=== PATIENT | male | born 1950 | race Caucasian/White ===

== ENCOUNTER 2020-07-28 09:48 | Outpatient (CLI) | payer MEDICARE, SELFPAY ==
--- NOTE | ~2020-07-28 | US_ITS ---
EXAMINATION: US aorta [facility] scr[facility] DATE: 07/28/2020 10:27 INDICATION: Abdominal aortic aneurysm screening. TECHNIQUE: Grayscale, color Doppler, and pulsed Doppler images of the aorta and common iliac arteries were obtained. COMPARISON: None. FINDINGS: The aorta is normal in caliber. The right common iliac artery is normal in caliber. The left common i liac artery is normal in caliber. IMPRESSION: 1. No abdominal aortic aneurysm. Reviewed, dictated and finalized at location A. [employer]
--- NOTE | ~2020-07-28 | XR_ITS ---
XR hand RT 2V DATE: 07/28/2020 10:16 INDICATION: Right first digit metacarpal pain for 3 months TECHNIQUE: 3 views COMPARISON: None FINDINGS: There is minimal osteophyte is at the first carpometacarpal joint. There is osteoarthritis at the interphalangeal joint of the first digit and at the third and especially second metacarpal pha langeal joints. No fracture, dislocation, periosteal reaction or bone destruction. IMPRESSION: Polyarticular osteoarthritis Reviewed, dictated and finalized at location B. 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
[2020-07-28 10:05] LABS: Hemoglobin 13.7 g/dL (12.4-15.3); Mean Corpuscular HGB Conc 34.3 g/dL (32.0-36.0); Mean Corpuscular Hemoglobin 31.4 pg (27.0-31.0); Mean Corpuscular Volume 91.5 fL (78.0-102.0); Mean Platelet Volume 8.7 fl (8.7-11.0); Platelet Count Result 180 K/mm3 (150-420); Red Blood Count 4.37 M/mm3 (4.70-6.10); Red Cell Distribution Width 12.9 % (11.6-14.4); White Blood Count 7.2 K/mm3 (4.8-10.8)
[2020-07-28 10:46] LABS: Alanine Aminotransferase 32 U/L (16-63); Albumin Level 4.1 g/dL (3.4-5.0); Alkaline Phosphatase 21 U/L (46-116); Anion Gap 7 mmol/L (8-16); Aspartate Amino Transferase 18 U/L (15-37); Bilirubin,Total 0.5 mg/dL (0.00-1.00); Blood Urea Nitrogen 10 mg/dL (7-18); Calcium 8.6 mg/dL (8.5-10.1); Carbon Dioxide 29 mmol/L (21-32); Chloride 104 mmol/L (98-108); Cholesterol 180 mg/dL (0-200); Estimated Glomerular Filt Rate > 60; Glucose 114 mg/dL (70-99); HDL Direct 35 mg/dL (40-60); LDL Cholesterol Calculated 106 mg/dL (<130); Osmolality Calculated 290 mOsm/kg (285-295); Potassium 4.1 mmol/L (3.5-5.1); Prostate Specific Antigen 0.7 ng/mL (< OR = 4.0); Sodium 140 mmol/L (136-145); Total Protein 6.8 g/dL (6.4-8.2); Triglycerides 193 mg/dL (0-150)
[2020-07-29 12:05] LABS: Hemoglobin A1C 5.2 % (<5.7)
== END 2020-07-28 09:49 | disposition home or self-care (01) ==
LOC: CHSLAB 09:52
PROVIDERS: Nurse Practitioner Family; PCP Family Medicine; Visit Provider Family Medicine
DX: M79.644 Pain in right finger(s) (principal); Z13.6 Encounter for screening for cardiovascular disorders; I10 Essential (primary) hypertension; Z12.5 Encounter for screening for malignant neoplasm of prostate
CPT/HCPCS: 36415; 73120; 76706; 80053; 80061; 83036; 84153; 85027; G0103

== ENCOUNTER 2021-04-10 16:19 | Outpatient (CLI) | payer MEDICARE, SELFPAY ==
--- NOTE | ~2021-04-10 | XR_ITS ---
XR chest 2V DATE: 04/10/2021 17:07 INDICATION: Cough for several months. History of COPD. TECHNIQUE: PA and lateral views COMPARISON: None FINDINGS: Normal heart size. No hilar or mediastinal enlargement. Aortic arch and descending thoracic aortic calcification. No hilar or mediastinal enlargement. The lungs are clear of infiltrate or consolidation. No pleural effusion or pulmonary vascular congest ion or pneumothorax. IMPRESSION: No active cardiopulmonary disease Reviewed, dictated and finalized at location B.
== END 2021-04-10 16:20 | disposition home or self-care (01) ==
LOC: CHSIMG 16:20
PROVIDERS: PCP Family Medicine; Visit Provider Family Medicine
DX: R05 Cough (principal)
CPT/HCPCS: 71046

== ENCOUNTER 2021-08-18 13:46 | Outpatient (CLI) | payer MEDICARE, SELFPAY ==
[2021-08-18 13:56] LABS: Hematocrit 42.5 % (37.0-46.0); Hemoglobin 14.7 g/dL (12.4-15.3); Mean Corpuscular HGB Conc 34.6 g/dL (32.0-36.0); Mean Corpuscular Hemoglobin 31.7 pg (27.0-31.0); Mean Corpuscular Volume 91.8 fL (78.0-102.0); Mean Platelet Volume 8.5 fl (8.7-11.0); Platelet Count Result 179 K/mm3 (150-420); Red Blood Count 4.63 M/mm3 (4.70-6.10); Red Cell Distribution Width 12.8 % (11.6-14.4); White Blood Count 6.6 K/mm3 (4.8-10.8)
== END 2021-08-18 13:47 | disposition home or self-care (01) ==
LOC: CHSLAB 13:48
PROVIDERS: PCP Family Medicine; Visit Provider Nurse Practitioner Family
DX: I10 Essential (primary) hypertension (principal)
CPT/HCPCS: 36415; 85027

== ENCOUNTER 2022-04-29 11:00 | Outpatient (RCR) | payer MEDICARE, SELFPAY | END 2022-05-11 14:05 | disposition home or self-care (01) | PROVIDERS: PCP Family Medicine | DX: J44.9 Chronic obstructive pulmonary disease, unspecified (principal) | CPT/HCPCS: 94625 ==

== ENCOUNTER 2022-09-20 14:23 | Outpatient (CLI) | payer MEDICARE, SELFPAY ==
[2022-09-20 14:40] LABS: Hematocrit 42.3 % (37.0-46.0); Hemoglobin 14.2 g/dL (12.4-15.3); Mean Corpuscular HGB Conc 33.6 g/dL (32.0-36.0); Mean Corpuscular Hemoglobin 31.1 pg (27.0-31.0); Mean Corpuscular Volume 92.6 fL (78.0-102.0); Mean Platelet Volume 8.6 fl (8.7-11.0); Platelet Count Result 207 K/mm3 (150-420); Red Blood Count 4.57 M/mm3 (4.70-6.10); Red Cell Distribution Width 12.9 % (11.6-14.4); White Blood Count 8.3 K/mm3 (4.8-10.8)
[2022-09-20 15:21] LABS: Alanine Aminotransferase 26 U/L (16-63); Albumin Level 4.4 g/dL (3.4-5.0); Alkaline Phosphatase 31 U/L (46-116); Anion Gap 8 mmol/L (8-16); Aspartate Amino Transferase 19 U/L (15-37); Bilirubin,Total 0.5 mg/dL (0.00-1.00); Blood Urea Nitrogen 14 mg/dL (7-18); Calcium 9.5 mg/dL (8.5-10.1); Carbon Dioxide 30 mmol/L (21-32); Chloride 97 mmol/L (98-108); Cholesterol 198 mg/dL (0-200); Estimated Glomerular Filt Rate > 60; Glucose 134 mg/dL (70-99); HDL Direct 49 mg/dL (40-60); LDL Cholesterol Calculated 111 mg/dL (<130); Osmolality Calculated 282 mOsm/kg (285-295); Potassium 4.6 mmol/L (3.5-5.1); Prostate Specific Antigen 0.8 ng/mL (< OR = 4.0); Sodium 135 mmol/L (136-145); Total Protein 7.2 g/dL (6.4-8.2); Triglycerides 190 mg/dL (0-150)
== END 2022-09-20 14:24 | disposition home or self-care (01) ==
PROVIDERS: PCP Family Medicine; Visit Provider Family Medicine
DX: R35.1 Nocturia (principal); I10 Essential (primary) hypertension; Z12.5 Encounter for screening for malignant neoplasm of prostate
CPT/HCPCS: 36415; 80053; 80061; 84153; 85027; G0103

== ENCOUNTER 2023-04-08 14:25 | Outpatient (CLI) | payer MEDICARE, SELFPAY ==
[2023-04-08 14:40] LABS: Basophils Absolute Auto 0.07 K/mm3 (0.00-0.10); Basophils Percent Auto 0.9 % (0.0-1.0); Hematocrit 40.5 % (37.0-46.0); Hemoglobin 13.9 g/dL (12.4-15.3); Immature Granulocyte Absolute 0.05 K/mm3 (0.00-0.00); Immature Granulocyte Percent A 0.7 % (0.0-0.0); Mean Corpuscular HGB Conc 34.3 g/dL (32.0-36.0); Mean Corpuscular Hemoglobin 32.1 pg (27.0-31.0); Mean Corpuscular Volume 93.5 fL (78.0-102.0); Mean Platelet Volume 8.6 fl (8.7-11.0); Monocytes Absolute Auto 0.96 K/mm3 (0.10-0.90); Monocytes Percent Auto 12.8 % (2.0-11.0); Neutrophils Absolute Auto 4.6 K/mm3 (1.7-7.2); Neutrophils Percent Auto 61.6 % (50.0-70.0); Platelet Count Result 182 K/mm3 (150-420); Red Blood Count 4.33 M/mm3 (4.70-6.10); Red Cell Distribution Width 13.1 % (11.6-14.4); White Blood Count 7.5 K/mm3 (4.8-10.8)
[2023-04-08 15:50] LABS: Alanine Aminotransferase 33 U/L (16-63); Albumin Level 3.9 g/dL (3.4-5.0); Alkaline Phosphatase 34 U/L (46-116); Anion Gap 6 mmol/L (8-16); Aspartate Amino Transferase 18 U/L (15-37); Bilirubin,Total 0.6 mg/dL (0.00-1.00); Blood Urea Nitrogen 12 mg/dL (7-18); Calcium 9.7 mg/dL (8.5-10.1); Carbon Dioxide 32 mmol/L (21-32); Chloride 102 mmol/L (98-108); Estimated Glomerular Filt Rate > 60; Ferritin 361 ng/mL (26-388); Glucose 90 mg/dL (70-99); Iron 103 ug/dL (65-175); Osmolality Calculated 289 mOsm/kg (285-295); Percent Iron Saturation 36 % (12-57); Potassium 4.7 mmol/L (3.5-5.1); Sodium 140 mmol/L (136-145); Total Protein 6.6 g/dL (6.4-8.2); Vitamin B12 > 2000 pg/mL (193-986)
[2023-04-08 15:51] LABS: Folic Acid > 20.0 ng/mL (8.6->20); Thyroid Stimulating Hormone Reflex 2.78 u/IU/mL (0.36-3.74)
== END 2023-04-08 14:26 | disposition home or self-care (01) ==
PROVIDERS: PCP Family Medicine; Visit Provider Family Medicine
DX: E11.9 Type 2 diabetes mellitus without complications (principal); D50.9 Iron deficiency anemia, unspecified; E53.8 Deficiency of other specified B group vitamins; D64.9 Anemia, unspecified
CPT/HCPCS: 36415; 80053; 82607; 82728; 82746; 83540; 83550; 84443; 85025

== ENCOUNTER 2023-04-29 10:13 | Outpatient (CLI) | payer MEDICARE, SELFPAY ==
[2023-05-04 15:35] LABS: Lyme Disease Ab (IgM), Blot Negative (Negative); Lyme Disease Ab(IgG), Blot Negative (Negative)
== END 2023-04-29 10:14 | disposition home or self-care (01) ==
LOC: CHSLAB 10:14
PROVIDERS: PCP Family Medicine; Visit Provider Family Medicine
DX: T14.90XA Injury, unspecified, initial encounter (principal); W57.XXXA Bitten or stung by nonvenomous insect and other nonvenomous arthropods, initial encounter
CPT/HCPCS: 36415; 86617; 86666

== ENCOUNTER 2023-05-03 07:23 | Outpatient (CLI) | payer MEDICARE, SELFPAY ==
--- NOTE | ~2023-05-03 | CT_ITS ---
EXAMINATION: CT chest abdomen w con DATE: 05/03/2023 08:46 CDT INDICATION: Cough TECHNIQUE: Computed tomography (CT) of the chest and abdomen was performed with 100 cc Omnipaque 350 intravenous contrast. The dose-length product was 657.20 mGy-cm. Automated exposure control and itera tive reconstruction technique were employed. COMPARISON: Chest x-ray dated 04/10/2021 FINDINGS: CHEST CT: No thoracic lymphadenopathy. Small pericardial effusion. No significant pleural effusion. Heart size normal. There is atherosclerosis of the aorta and coronary arteries. There are reticulonodular densit ies of the right upper, middle and bilateral lower lobes, most likely infectious/inflammatory. No end obronchial lesions. There are groundglass opacities in the left upper lobe. ABDOMEN CT: There are low-density lesions in both lobes of the liver, largest in the right hepatic lobe measuring 1.6 cm, likely benign. Gallbladder is present. The spleen, pancreas, adrenal glands and left kidney are unremarkable. There are small low-density lesions in the right kidney measuring less than 1 cm, l ikely benign. No free air or free fluid. No lymphadenopathy. Gallbladder is present. There is diffuse idiopathic skeletal hyperostosis (DISH) of the thoracic and lumbar spine. There is accentuated thora cic kyphosis. IMPRESSION: 1. Reticulonodular densities bilaterally in the lungs, most likely infectious/inflammatory. 2: Small pericardial effusion. Reviewed, dictated and finalized at location L. IMPRESSION: 1. Reticulonodular densities bilaterally in the lungs, most likely infectious/i nflammatory. 2: Small pericardial effusion.
--- NOTE | ~2023-05-03 | CT_ITS ---
EXAMINATION: CT sinus wo con DATE: 05/03/2023 08:14 INDICATION: Allergic rhinitis TECHNIQUE: Computed tomography (CT) of the paranasal sinuses was performed without intravenous contra st. The dose-length product was 556.69 mGy-cm. Automated exposure control and iterative reconstructio n technique were employed. COMPARISON: None FINDINGS: There is mild mucosal thickening of the maxillary, ethmoid and sphenoid sinuses. Ostiomeata l units are patent. Small left mastoid effusion. Right mastoid air cells are pneumatized. Rightward n kayleigh septal deviation. Ostiomeatal units are patent. IMPRESSION: 1. Mild sinus disease. Reviewed, dictated and finalized at location L. IMPRESSION: 1. Mild sinus disease.
== END 2023-05-03 07:24 | disposition home or self-care (01) ==
LOC: CHSIMG 07:24
PROVIDERS: PCP Family Medicine; Visit Provider Family Medicine
DX: J30.9 Allergic rhinitis, unspecified (principal); R05.9 Cough, unspecified; J32.9 Chronic sinusitis, unspecified; I31.39 Other pericardial effusion (noninflammatory); J98.4 Other disorders of lung
CPT/HCPCS: 70486; 71260; 74160; Q9967

== ENCOUNTER 2023-06-24 12:15 | Outpatient (CLI) | payer MEDICARE, SELFPAY ==
--- NOTE | ~2023-06-24 | CT_ITS ---
Non-contrast CT scan of the Abdomen and Pelvis Clinical indication: Abdominal hernia Technique: 2.5 mm axial scans were obtained through the abdomen and pelvis without intravenous or or al contrast. Dose reduction technique was used on this scan by utilizing automated exposure control a nd iterative reconstruction technique. The dose-length product (DLP) was 404.52 mGy-cm. COMPARISON: 05/03/2023 Findings: Images through the lung bases reveal focal areas of probable tree-in-bud opacity or scarri ng at the lung bases. Stable hepatic cyst. The spleen, pancreas, kidneys, gallbladder, and adrenals appear normal. There ar e atherosclerotic calcifications of the aorta. There is no evidence of bowel obstruction. Images through the pelvis were performed. There is no evidence of ascites or lymphadenopathy. Small f at-containing left inguinal hernia noted. Urinary bladder unremarkable. No pelvic mass seen. There is ankylosis of the SI joints with flowing syndesmophytes in the visualized spine, consistent with anky losing spondylitis. Impression: Small fat-containing left inguinal hernia. Minimal tree-in-bud opacities or scarring at the lung bases, similar to prior exam. Correlate for chr onic small airways infectious process, such as VIRGIL. Ankylosing spondylitis, as detailed above. Reviewed, dictated and finalized at location . Impression: Small fat-containing left inguinal hernia. Minimal tree-in-bud opacities or scarring at the lung bases, similar to prior e xam. Correlate for chronic small airways infectious process, such as VIRGIL. Ankylosing spondylitis, as detailed above.
== END 2023-06-24 12:16 | disposition home or self-care (01) ==
LOC: CHSIMG 12:16
PROVIDERS: PCP Family Medicine; Visit Provider Family Medicine
DX: K46.9 Unspecified abdominal hernia without obstruction or gangrene (principal); K40.90 Unilateral inguinal hernia, without obstruction or gangrene, not specified as recurrent; R91.8 Other nonspecific abnormal finding of lung field; M45.8 Ankylosing spondylitis sacral and sacrococcygeal region
CPT/HCPCS: 74176

== ENCOUNTER 2023-07-14 13:49 | Outpatient (CLI) | payer MEDICARE, SELFPAY ==
--- NOTE | ~2023-07-14 | XR_ITS ---
XR chest 2V DATE: 07/14/2023 14:42 INDICATION: Shortness of breath. History of COPD. TECHNIQUE: PA and lateral views COMPARISON: 05/03/2023 CT chest FINDINGS: There is focal infiltrate in the anterolateral aspect of the anterior segment of the right upper lobe, new since 05/03/2023, suggesting focal pneumonia. There is new retrocardiac left lower lobe infiltrate and/or atelectasis as well. Bilateral hyperinflation, consistent with COPD. Normal heart size. No hilar or mediastinal enlargement. There is thoracic and abdominal aortic calcification. IMPRESSION: Mild anterior segment right upper lobe and left lower lobe infiltrate, suggesting bilater al multifocal pneumonia COPD Reviewed, dictated and finalized at location L. IMPRESSION: Mild anterior segment right upper lobe and left lower lobe infiltra te, suggesting bilateral multifocal pneumonia COPD
[2023-07-14 14:15] LABS: Basophils Absolute Auto 0.04 K/mm3 (0.00-0.10); Basophils Percent Auto 0.2 % (0.0-1.0); Eosinophils Absolute Auto 0.03 K/mm3 (0.02-0.50); Eosinophils Percent Auto 0.2 % (1.0-6.0); Hematocrit 38.2 % (37.0-46.0); Hemoglobin 12.8 g/dL (12.4-15.3); Immature Granulocyte Absolute 0.11 K/mm3 (0.00-0.00); Immature Granulocyte Percent A 0.7 % (0.0-0.0); Lymphocytes Absolute Auto 0.73 K/mm3 (1.10-4.50); Lymphocytes Percent Auto 4.5 % (18.0-42.0); Mean Corpuscular HGB Conc 33.5 g/dL (32.0-36.0); Mean Corpuscular Volume 92.5 fL (78.0-102.0); Mean Platelet Volume 8.8 fl (8.7-11.0); Monocytes Absolute Auto 1.29 K/mm3 (0.10-0.90); Monocytes Percent Auto 7.9 % (2.0-11.0); Neutrophils Absolute Auto 14.1 K/mm3 (1.7-7.2); Neutrophils Percent Auto 86.5 % (50.0-70.0); Platelet Count Result 159 K/mm3 (150-420); Red Blood Count 4.13 M/mm3 (4.70-6.10); White Blood Count 16.3 K/mm3 (4.8-10.8)
[2023-07-14 14:48] LABS: Alanine Aminotransferase 17 U/L (16-63); Albumin Level 3.2 g/dL (3.4-5.0); Alkaline Phosphatase 33 U/L (46-116); Anion Gap 8 mmol/L (8-16); Aspartate Amino Transferase < 10 U/L (15-37); Bilirubin,Total 1.1 mg/dL (0.00-1.00); Blood Urea Nitrogen 9 mg/dL (7-18); Calcium 9.7 mg/dL (8.5-10.1); Carbon Dioxide 30 mmol/L (21-32); Chloride 100 mmol/L (98-108); Estimated Glomerular Filt Rate > 60; Glucose 127 mg/dL (70-99); Osmolality Calculated 286 mOsm/kg (285-295); Sodium 138 mmol/L (136-145); Total Protein 6.2 g/dL (6.4-8.2)
== END 2023-07-14 13:50 | disposition home or self-care (01) ==
LOC: CHSLAB 13:50
PROVIDERS: PCP Family Medicine; Visit Provider Family Medicine
DX: J44.9 Chronic obstructive pulmonary disease, unspecified (principal); R91.8 Other nonspecific abnormal finding of lung field
CPT/HCPCS: 36415; 71046; 80053; 85025

== ENCOUNTER 2023-08-15 12:22 | Outpatient (CLI) | payer MEDICARE, SELFPAY ==
[2023-08-15 13:08] LABS: Alveolar/Arterial O2 Gradient 33.8 mmHg; Base Excess ABG 0.8 mEq/l (+/-2.0); Carboxyhemoglobin 0.3 % THb (0-2.0); Fractional Inspired Oxygen 21 %; HCO3 ABG 24.5 mEq/l (22.0-26.0); Methemoglobin ABG 0.2 %THb (0-1.5); Oxygen Content ABG 18.4 %vol (16.0-22.0); Oxygen Saturation ABG 95.2 % (95.0-100.0); Oxyhemoglobin 93.9 % THb (90.0-100.0); PCO2 ABG 36.5 mmHg (35.0-45.0); PO2 ABG 72.2 mmHg (80.0-100.0); PO2 FiO2 Ratio Arterial Blood 3.44 %; Reduced Hemoglobin 5.6 %THb (0-5.0); Total Hemoglobin 13.9 g/dL (12.0-18.0); pH ABG 7.445 (7.350-7.450)
[2023-08-15 13:10] LABS: Device ROOM AIR; Modified Allen's Test Pass
--- NOTE | 2023-08-19 16:52 | P.PCNPFT_ITS ---
PFT Procedure Performed PFT Procedure Performed Spirometry with Pre/Post Bronchodilator Plethysmography (Lung Vol) Diffusing Cap (DLCO) Flow Vol Loop PFT Interpretation DOS: 08/15/2023 REQUESTING: Dr Justin Sosa REASON FOR TESTING: COPD PULMONARY FUNCTION TESTS Results are reliable and reproducible. Spirometry: Pre bronchodilator FEV1 is 1.06 L, 40%, severely reduced. Pre bronchodilator FVC is 2.79 L, 79%, normal. FEV1/ FVC ratio is 38%, extremely low consistent with airflow obstruction. After bronchodilator there is a 2% drop in the FEV1, 1.04 L and there is a 6% increase in the FVC, 2.96 L, not statistically significant. Lung volumes: Total lung capacity is 8.41 L, 134%, elevated, consistent with hyperinflation. Residual volume is 5.62 L, 240% predicted, severe air trapping. RV/TLC elevated 67%, air trapping. Airway resistance is 6.14, 429%, elevated. Diffusion: DLCO is 13.3, 57%, decreased. DLCO /VA 3.56, 89%, normal. Flow volume loop: Severe coving of the expiratory limb. IMPRESSION: Severe obstructive ventilatory impairment without response to bronchodilator, mild hyperinflation, severe air trapping, moderate diffusion impairment that corrects for alveolar volumes. Lack of response to bronchodilator should not preclude use if clinically indicated. Compared to spirometry 05/02/2022 at [facility] pulmonary, spirometry is similar. FEV1 was 1.06 L, 40%, FVC was 2.37 L, 68%, FEV1/FVC was 45%. Jenifer Farias MD
--- NOTE | 2023-08-19 17:09 | WPDSIXMINUTE ---
Six Minute Walk Procedure Procedure Performed Pulmonary Stress Test (6 min walk) Six Minute Walk Six Minute Walk: DATE OF SERVICE: 08/15/2023 REQUESTING: Dr Justin Sosa REASON FOR TESTING: COPD SIX MINUTE WALK This test was conducted per ATS guidelines. He was on room air during the walk. The initial saturation was 93%, and initial heart rate was 60 beats per minute. The patient walked without stopping, completing 1200 feet/365.7 meters. The saturation at the end of testing was 93%, and the heart rate was 73 beats per minute. The lowest saturation during the walk was 90%. IMPRESSION: This is a normal study. The patient did not require supplemental oxygen with exertion. Jenifer Farias MD
--- NOTE | 2023-08-29 14:21 | WPDSIXMINUTE ---
Six Minute Walk Procedure Procedure Performed Pulmonary Stress Test (6 min walk) Six Minute Walk Six Minute Walk: This is a 6 minute walk test. The test was performed and interpreted in accordance with the 2014 ERS/ATS task force guidelines. Findings: The patient's resting room air oxygen saturation measured by pulse oximetry was 93% and heart rate was 62 bpm. Patient ambulated for 366 meters and oxygen saturation remained 90 to 93%. Heart rate at the end of the study was 84 bpm. The patient did not qualify for supplemental oxygen at rest or with ambulation. There are no prior studies for comparison.
--- NOTE | 2023-08-29 14:22 | WPDPFTINT ---
PFT Procedure Performed PFT Procedure Performed Spirometry with Pre/Post Bronchodilator Plethysmography (Lung Vol) Diffusing Cap (DLCO) Flow Vol Loop PFT Interpretation This is a pulmonary function test with pre and post-bronchodilator spirometry, plethysmography and diffusing capacity. The test was performed and results interpreted in accordance with the 2019 and 2005 ATS/ERS Task Force guidelines respectively using the Global Lung Function Initiative-2012 reference equations. Patient demonstrated good effort and cooperation. Reproducibility criteria were met. The quality of the pre bronchodilator spirometry maneuver was Grade A and post bronchodilator spirometry maneuver was Grade A. Findings: Spirometry: There is decreased maximal expiratory airflow at all lung volumes with concave expiratory flow tracing. The contour the inspiratory flow tracing is normal. The pre bronchodilator FVC is 2.79 L, 79% predicted. The pre bronchodilator FEV1 is 1.06 L, 40% predicted. The pre bronchodilator FEV1: FVC ratio is 38%. The post bronchodilator FVC is 2.96 L, representing a 6% increase. The post bronchodilator FEV1 is 1.04 L, representing a 2% decrease. The post bronchodilator FEV1: FVC ratio is 35%. Plethysmography: The total lung capacity is 8.41 L, 134% predicted. The functional residual capacity is 6.56, 198% predicted. The residual volume is 5.62 L, 240% predicted. Diffusing capacity: The diffusing capacity unadjusted for hemoglobin and carboxyhemoglobin is 13.3, 57% predicted. The diffusing capacity adjusted for alveolar volume is 3.56, 89% predicted. Impression: There is a severe obstructive abnormality without significant improvement after inhaling a single dose of albuterol. The increase in residual volume is consistent with air trapping from an obstructive abnormality. Hyperinflation is present as demonstrated by the increase in functional residual capacity and total lung capacity and is consistent with an obstructive abnormality. The diffusing capacity unadjusted for hemoglobin and carboxyhemoglobin is moderately decreased and normalizes when adjusted for alveolar volume. There are no prior studies for comparison
== END 2023-08-15 12:23 | disposition home or self-care (01) ==
PROVIDERS: PCP Family Medicine; Visit Provider Internal Medicine Pulmonary Disease
DX: J44.9 Chronic obstructive pulmonary disease, unspecified (principal); R94.2 Abnormal results of pulmonary function studies
CPT/HCPCS: 36600; 82375; 82805; 83050; 94060; 94618; 94726; 94729

== ENCOUNTER 2023-12-07 10:16 | Outpatient (CLI) | payer MEDICARE, SELFPAY ==
--- NOTE | ~2023-12-07 | CT_ITS ---
EXAMINATION: CT diagnostic chest wo con DATE: 12/07/2023 10:34 INDICATION: Other nonspecific abnormal finding of the lung field TECHNIQUE: Computed tomography (CT) of the chest was performed without intravenous contrast. The dose -length product (DLP) was 234.93 mGy-cm. Automated exposure control and iterative reconstruction tech [employer] were employed. COMPARISON: 05/03/2023 FINDINGS: There are subtle groundglass nodules of the upper lobes, right greater than left. There is a 9 mm pleural-based nodule of the left lower lobe, new since the comparison examination. No pleural effusion or pneumothorax. No pathologically enlarged thoracic lymph nodes are identified. The heart s ize is normal. There is calcified coronary artery atherosclerosis. There is a 13 mm cyst of the liver . There are bridging osteophytes at multiple levels in the spine, consistent with diffuse idiopathic skeletal hyperostosis (DISH). IMPRESSION: 1. Subtle groundglass nodules of the upper lobes and new left lower lobe nodule, likely infectious or inflammatory. Reviewed, dictated and finalized at location F. IMPRESSION: 1. Subtle groundglass nodules of the upper lobes and new left lower lobe nodule , likely infectious or inflammatory.
== END 2023-12-07 10:17 | disposition home or self-care (01) ==
PROVIDERS: PCP Family Medicine; Visit Provider Internal Medicine Pulmonary Disease
DX: R91.8 Other nonspecific abnormal finding of lung field (principal)
CPT/HCPCS: 71250

== ENCOUNTER 2024-03-02 17:13 | Outpatient (CLI) | payer MEDICARE, SELFPAY ==
--- NOTE | ~2024-03-02 | XR_ITS ---
XR chest 2V DATE: 03/02/2024 17:21 INDICATION: Cough. History of COPD. TECHNIQUE: PA and lateral views COMPARISON: 12/07/2023 CT chest 07/14/2023 2 view chest FINDINGS: Interval clearing of bilateral infiltrates since 07/14/2023. The lungs are hyperinflated consistent with history of COPD. No pulmonary infiltrate or consolidation , pleural effusion or pulmonary vascular congestion or pneumothorax is detected. Normal heart size. No hilar or mediastinal enlargement. Aortic arch calcification. Osteopenia. IMPRESSION: Bilateral hyperinflation consistent with COPD No active cardiac or pulmonary disease Aortic atherosclerosis Osteopenia Reviewed, dictated and finalized at location A.
== END 2024-03-02 17:14 | disposition home or self-care (01) ==
LOC: ANHIMG 17:14
PROVIDERS: PCP Family Medicine; Visit Provider Nurse Practitioner Family
DX: R05.9 Cough, unspecified (principal); M85.88 Other specified disorders of bone density and structure, other site; I70.0 Atherosclerosis of aorta
CPT/HCPCS: 71046

== ENCOUNTER 2024-06-18 10:52 | Outpatient (CLI) | payer MEDICARE, SELFPAY ==
--- NOTE | ~2024-06-18 | CT_ITS ---
CT Scan of the Chest without Contrast: Clinical Indication: Pulmonary nodule, COPD Technique: Contiguous sections were acquired throughout the chest without intravenous contrast. Dose reduction technique was used on this scan by utilizing automated exposure control and iterative recon struction technique. The dose-length product (DLP) was 200.10 mGy-cm. COMPARISON: 12/07/2023 Findings: There is no evidence of any significant mediastinal, hilar or axillary lymphadenopathy. There are ext ensive atherosclerotic calcifications of the aorta and coronary arteries. There is no evidence of pleural or pericardial effusion. There is a new 12 x 4 mm ovoid nodular opacity in the medial right lung apex (axial image 31). Severa l scattered tiny 111 2 mm pulmonary nodules are present, similar to prior exam. Focal left basilar sc arring present. Images through the upper abdomen reveal no abnormalities. There are extensive flowing syndesmophytes of the visualized spine, suspicious for underlying ankylosing spondylitis. Impression: New 12 x 4 mm ovoid opacity/nodule in the medial right lung apex, likely infectious/inflammatory. Fol low-up CT scan in 1-3 months recommended to reassess. Several additional tiny nodules are unchanged. Findings in the spine are suspicious for underlying ankylosing spondylitis. Reviewed, dictated and finalized at location . Impression: New 12 x 4 mm ovoid opacity/nodule in the medial right lung apex, likely infect ious/inflammatory. Follow-up CT scan in 1-3 months recommended to reassess. Several additional tiny nodules are unchanged. Findings in the spine are suspicious for underlying ankylosing spondylitis.
== END 2024-06-18 10:53 | disposition home or self-care (01) ==
LOC: CHSIMG 10:53
PROVIDERS: PCP Family Medicine; Visit Provider Internal Medicine Pulmonary Disease
DX: R91.8 Other nonspecific abnormal finding of lung field (principal)
CPT/HCPCS: 71250

== ENCOUNTER 2024-09-18 13:46 | Outpatient (CLI) | payer MEDICARE, SELFPAY ==
[2024-09-18 14:05] LABS: Basophils Absolute Auto 0.05 K/mm3 (0.00-0.10); Basophils Percent Auto 0.7 % (0.0-1.0); Eosinophils Absolute Auto 0.29 K/mm3 (0.02-0.50); Eosinophils Percent Auto 4.2 % (1.0-6.0); Hematocrit 37.3 % (37.0-46.0); Hemoglobin 12.7 g/dL (12.4-15.3); Immature Granulocyte Absolute 0.05 K/mm3 (0.00-0.00); Immature Granulocyte Percent A 0.7 % (0.0-0.0); Lymphocytes Absolute Auto 1.19 K/mm3 (1.10-4.50); Lymphocytes Percent Auto 17.3 % (18.0-42.0); Mean Platelet Volume 8.2 fl (8.7-11.0); Monocytes Percent Auto 10.2 % (2.0-11.0); Neutrophils Absolute Auto 4.58 K/mm3 (1.70-7.20); Neutrophils Percent Auto 66.9 % (50.0-70.0); Platelet Count Result 218 K/mm3 (150-420); Red Cell Distribution Width 12.3 % (11.6-14.4); White Blood Count 6.9 K/mm3 (4.8-10.8)
[2024-09-18 14:16] LABS: Hemoglobin A1C 4.9 % (<5.7)
[2024-09-18 14:53] LABS: Influenza A QL RT-PCR Negative (Negative); Influenza B QL RT-PCR Negative (Negative); RSV RNA, RT-PCR Negative (Negative); SARS-CoV-2 RNA PCR Negative (Negative)
[2024-09-18 15:12] LABS: Alanine Aminotransferase 27 U/L (16-63); Albumin Level 3.7 g/dL (3.4-5.0); Alkaline Phosphatase 32 U/L (46-116); Anion Gap 7 mmol/L (4-12); Aspartate Amino Transferase 18 U/L (15-37); Bilirubin,Total 0.4 mg/dL (0.00-1.00); Blood Urea Nitrogen 10 mg/dL (7-18); Calcium 9.2 mg/dL (8.5-10.1); Carbon Dioxide 32 mmol/L (21-32); Chloride 101 mmol/L (98-108); Cholesterol 155 mg/dL (0-200); Estimated Glomerular Filt Rate > 60; Glucose 96 mg/dL (70-99); HDL Direct 40 mg/dL (40-60); LDL Cholesterol Calculated 90 mg/dL (<130); Osmolality Calculated 289 mOsm/kg (285-295); Potassium 4.4 mmol/L (3.5-5.1); Sodium 140 mmol/L (136-145); Total Protein 6.3 g/dL (6.4-8.2); Triglycerides 125 mg/dL (0-150)
== END 2024-09-18 13:47 | disposition home or self-care (01) ==
LOC: CHSLAB 13:48
PROVIDERS: PCP Family Medicine; Visit Provider Family Medicine
DX: J44.9 Chronic obstructive pulmonary disease, unspecified (principal); E11.9 Type 2 diabetes mellitus without complications
CPT/HCPCS: 36415; 80053; 80061; 83036; 85025; 87637

== ENCOUNTER 2024-10-11 09:15 | Outpatient (CLI) | payer MEDICARE, SELFPAY ==
--- NOTE | ~2024-10-11 | CT_ITS ---
EXAMINATION:CT diagnostic chest wo con DATE: 10/11/2024 09:32 INDICATION: Lung nodule. TECHNIQUE: Computed tomography (CT) of the chest was performed without intravenous contrast. Automate d exposure control and iterative reconstruction technique were employed. The dose-length product (DLP ) was 209.06 mGy-cm. COMPARISON: Chest CT 06/18/2024, 05/03/23 FINDINGS: There is mild bronchiectasis in the inferior lungs. There is mild atelectasis bilaterally. There are multiple scattered nodules in the lungs measuring up to 6 mm in right upper lobe. No pleura l effusion. The heart size is normal. There are coronary artery calcifications. There is a trace vikas cardial effusion. Again seen is a mildly enlarged right paratracheal lymph node. There is a 15 mm cys t in the liver. There is widespread bridging bone in the spine, consistent with ankylosing spondyliti s. IMPRESSION: 1. Pulmonary nodules measuring up to 6 mm with areas of worsening and areas of improvement from 2023, likely infection. Consider noncontrast low-dose chest CT in 6 months. Reviewed, dictated and finalized at location A. ATION GENERAL MANAGER IMPRESSION: 1. Pulmonary nodules measuring up to 6 mm with areas of worsening and areas of improvement from 06/18/2024, likely infection. Consider noncontrast low-dose [facility] st CT in 6 months.
--- OUTSIDE RECORDS SUMMARY | 2024-10-11 09:53 | XMS_ITS | Encounter Summary ---
Author Organization [facility] Address [address] [place] [address]. [place], [place] [id number] [place] [id number] Care Team Providers Care Chemical Pathologist Name Role Phone Sylvain Hernandez MD Primary Care Provider [phone] Encounter Details Date Type Department Care Team (Late st Contact Info) Description 02/17/2019 Abstract [facility] CONVERSION [address] [place] [address] , Generic ConversionMD Social History Tobacco Use Types Packs/Day Years Used Date Smoking Tobacco: Former Cigarettes 1 15 1 965 - 1980 Smokeless Tobacco: Never Alcohol Use Standard Drinks/Week Comments Yes 1.7 (1 standard drink = 0.6 oz p ure alcohol) 1 drink/day Sex and Gender Information Value Date Recorded Sex Assigned at Not on file Legal 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
--- OUTSIDE RECORDS SUMMARY | 2024-10-11 09:53 | XMS_ITS | Clinical Summary ---
Author Organization [facility] Address [address] [place] [address] Phone Care Team Providers Care Key Operator Name Role Phone Unavailable Primary Care Provider Unavailabl e Allergies No known active allergies Medications niacin 500 MG PO TABS Take 1,500 mg by mouth daily. Active Multiple Vitamin (MULTIVITAMIN PO) Take 1 Tab by mouth daily. Active albuterol (PROAIR HFA) 108 (90 BASE) MCG/ACT IN AERS take 2 Puffs by inhalation every 4 hours as needed for Wheezing. 1 Inhaler 3 3 Active ASPIRIN by Does not apply route. Active Ibuprofen (ADVIL) 200 MG PO CAPS Take by mouth. Activ e fluticasone-doug meterol (ADVAIR DISKUS) 250-50 MCG/DOSE IN AEPB take 1 Puff by inhalation 2 times daily. 3 Each 3 4 Active atenolol 50 MG PO TABS Take 1 Tab by mouth daily. 90 Tab 3 4 Active TRIAMCINOLONE 55 MCG/ACT NA INHA USE 1 TO 2 SPRAYS NASALLY DAILY DIRECTED 3 Inhaler 0 4 Active amLODIPine 5 MG PO TABS Take 1 Tab by mouth daily. 90 Tab 3 4 Active terazosin 5 MG PO CAPS Take 1 Cap by mouth nightly. 90 Cap 3 4 Active Active Problems Problem Noted Date Diagnosed Date COPD (chronic obstructive pulmonary disease) Sinusitis, chronic 03/19/2008 Ankylosing spondylitis 08/09/2007 Arthropathy 07/07/2004 Essential hypertension, benign 07/07/2004 Resolved Problems Problem Noted Date Diagnosed Date Resolved Date Cardiovascular symptoms 02/28/200407/13 Chronic airway obstruction 12/25/200309/29/2008 Overview (04/22/2009): PAMELA ANDRADE MD Shortness of breath 12/25/2003 07/30/20 09 Overview (04/22/2009): PAMELA ANDRADE MD Immunizations Immunization Administration Dates Next Due Influenza Vaccine greater than 3 yrs 06/17/2009, 07/31/2008 Influenza Vaccine less than 3 yrs 06/06/2012 PNEUMONIA ADULT IM PPSV23 06/06/2012 PUR FLU PRES FREE AGE 3+ FULL IM 07/12/2013 PUR TDAP 7+ YRS IM 07/12/2013 PUR ZOSTAVAX 07/30/2009 VFC PNEUMONIA (PPSV23) 08/09/2007 Family History Medical History Relation Name Comments Cancer Brother 4 pancreatic Cancer Brother 5 brain cancer Emphysema Father Relation Name Status Comments Brother 1 Alive colon ca Brother 2 Alive prostate cancer Brother 3 Alive early dementia late 70's Brother 4 Alive early dementia late 70 Brother 5 lung ca Father (Age late 60's) Mother Social History Tobacco Use Types Packs/Day Years Used Date Smoking Tobacco: Former Cigarettes 1.5 15 0 09/12/1960 - 09/12/1975 Smokeless Tobacco: Never Tobacco Cessation:Counseling Given: Yes Alcohol Use Standard Drinks/Week Comments No 0 (1 standard drink = 0.6 oz pur e alcohol) Sex and Gender Information Value Date Recorded Sex Assigned at Not on file 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 Gender Identity Not on file Sexual Orientation Not on file Last Filed Vital Signs Vital Sign Reading Time Taken Comments Blood Pressure 124/64 01/10/2014 9:00 AM CDT Pulse 72 01/10/2014 9:00 AM CDT Temperature 36.2 ??C (97.1 ??F) 01/10/2014 9:00 AM CD T Respiratory Rate 18 01/10/2014 9:00 AM CDT Oxygen Saturation 96% 01/10/2014 9:00 AM CDT Inhaled Oxygen Concentration - - Weight 77.6 kg (171 lb) 01/10/2014 9:00 AM CDT Height 172.7 cm (5' 8 ) 01/10/2014 9:00 AM CDT Body Mass Index 26 01/10/2014 9:00 AM CDT Plan of Treatment Health Maintenance Due Date Last Done Comments Hepatitis C Virus (HCV) Screening 1950 Zoster Immunization (1 of 2) 09/24/2009 Pneumococcal Immunization (50+ years) (2 of 2 - PCV) 06/06/2013 06/06/2012, 08/09/2007 Respiratory Syncytial Virus (RSV) Immunization (Adult) (1 - 1-dose 75+ series) 2023 Influenza Immunization (#1) 05/13/202406/14, 06/06/2012, 06/17/2009, Additional history exists SARS-COV-2 Immunization ( - 2023- season) 2024 Pneumococcal Immunization Combined Discontinued 06/06/2012, 08/09/2007 Colonoscopy High Risk Discontinued 07/03/2013, 008 Colonoscopy Discontinued 07/03/2013, 06/28/2008 Colorectal Cancer Screening Discontinued DTaP/Tdap/Td Immunization Discontinued 07/12/2013 Cologuard Discontinued Hepatitis B Immunization Aged Out No longer eligible based on patient's age to complete this topic Immunochemical Fecal Occult Blood Discontinued Meningococcal Immunization (ACWY) Discontinued Rotavirus Immunization Aged Out No lo nger eligible based on patient's age to complete this topic Procedures Procedure Name Priority Date/Time Associated Diagnosis Comments COLONOSCOPY SCRN HI RISK Routine 07/03/2013 11:25 AM CDT Family hx of colon cancer from Last 3 Months or Most Recently Relevant to Health Maintenance Results * COLONOSCOPY SCRN HI RISK (07/03/2013 11:25 AM CDT) Narrative Gene Salinas MD - 07/03/2013 11:25 AM CDT Gene Salinas MD ? 07/03/2013 11:25 AM PREOPERATIVE DIAGNOSIS: ??Family history of colon cancer POSTOPERATIVE DIAGNOSIS: ??Family history of colon cancer PROCEDURE PERFORMED: ??Colonoscopy ATTENDING SURGEON: ??Gene Salinas M.D. ANESTHESIA: ?Versed 5 mg and fentanyl 100 mcg OPERATIVE FINDINGS: ?? Nonspecific inflammation of the sigmoid colon INDICATION FOR PROCEDURE: ??Deniz is a 63-year-old white male who presents at this time to undergo a follow-up colonoscopy. His last colonoscopy was five (5) years ago. Family history of colon cancer in his brother. The patient has not had polyps removed in the past. Previous colonoscopy was found to have a nonspecific colitis involving the sigmoid colon. PROCEDURE Patient was brought to the Endoscopy Suite, where he was placed in the left lateral position. He was given IV Versed and fentanyl for sedation. Once sedation was adequate, the anal region was examined and was normal. Digital rectal exam revealed no masses. The colonoscope was inserted into the rectum, which was normal. Anal canal was normal. The scope was then advanced through the colon. In the sigmoid colon, there were a few patchy erythematous areas, which have been biopsied in the past and came back as nonspecific colitis. The scope was then advanced through the colon, and at this point, which appeared to be normal, the scope was advanced all the way into the cecum. The cecum was confirmed by presence of the ileocecal valve and by palpation in the right lower quadrant. At this point, the scope was withdrawn. The colonic mucosa was re-examined. There was no endoscopic evidence of colonic polyps and/or diverticular disease. Prep quality was excellent. Deniz tolerated the procedure well. No complications. IMPRESSION 1. ??Nonspecific mild inflammation of the mucosa in the sigmoid colon region RECOMMENDATIONS 1. ??Follow up with primary care physician, Dr. Justin Lanza. 2. ??Repeat colonoscopy in five (5) years. Procedure Note Gene Salinas MD - 07/03/2013 9:46 AM CDT PREOPERATIVE DIAGNOSIS: Family history of colon cancer POSTOPERATIVE DIAGNOSIS: Family history of colon cancer PROCEDURE PERFORMED: Colonoscopy ATTENDING SURGEON: Gene Salinas M.D. ANESTHESIA: Versed 5 mg and fentanyl 100 mcg OPERATIVE FINDINGS: Nonspecific inflammation of the sigmoid colon INDICATION FOR PROCEDURE: Deniz is a 63-year-old white male who presentsat this time to undergo a follow-up colonoscopy. His last colonoscopy wasfive (5) years ago. Family history of colon cancer in his brother. Thepatient has not had polyps removed in the past. Previous colonoscopy was foundto have a nonspecific colitis involving the sigmoid colon. PROCEDURE Patient was brought to the Endoscopy Suite, where he was placed in theleft lateral position. He was given IV Versed and fentanyl for sedation. Once sedation was adequate, the anal region was examined and was normal.Digital rectal exam revealed no masses. The colonoscope was inserted into the rectum, which was normal. Anal canal was normal. The scope was thenadvanced through the colon. In the sigmoid colon, there were a few patchyerythematous areas, which have been biopsied in the past and came back as nonspecific colitis. The scope was then advanced through the colon, and at thispoint, which appeared to be normal, the scope was advanced all the way into the cecum. The cecum was confirmed by presence of the ileocecal valve and by palpation in the right lower quadrant. At this point, the scope was withdrawn. The colonic mucosa was re-examined. There was no endoscopic evidence of colonic polyps and/or diverticular disease. Prep quality was excellent. Deniz tolerated the procedure well. No complications. IMPRESSION 1. Nonspecific mild inflammation of the mucosa in the sigmoid colonregion RECOMMENDATIONS 1. Follow up with primary care physician, Dr. Justin Lanza. 2. Repeat colonoscopy in five (5) years. us Gene Salinas MD [place] - DIGESTIVE SYSTEM SE RVICES Final Result from Last 3 Months or Most Recently Relevant to Health Maintenance Insurance MEDICARE
--- OUTSIDE RECORDS SUMMARY | 2024-10-11 09:53 | XMS_ITS | Clinical Summary ---
Author Organization [facility] Address [address] [place] [address]. [place], [place] [address] [place] [address] Care Team Providers Care Forestry Technician Name Role Phone Sylvain Hernandez MD Primary Care Provider [phone] Allergies No known active allergies Medications amlodipine 5 MG tablet Take 5 mg by mouth. 4 Active atenolol 50 MG tablet Take 50 mg by mouth. 4 Active Ibuprofen 200 MG capsule Active terazosin 5 MG capsule Take 5 mg by mouth. 4 Active triamcinolone acetonide 55 MCG/ACT nasal inhaler USE 1 TO 2 SPRAYS NASALLY DAILY DIRECTED 4 Active Multiple Vitamins-Mineral s (MULTIVITAMIN ADULT) Tab Active Glucosamine 500 MG Cap Active Ascorbic Acid (VITAMIN C) 100 MG tablet Take 100 mg by mouth daily. Active albuterol sulfate HFA 108 (90 Base) MCG/ACT inhaler 3 Active aspirin EC (ASPIRIN EC) 81 MG tablet Take 81 mg by mouth daily. Active diphenhydrAMINE- APAP 25-500 MG Tab tablet Take 1 tablet by mouth nightly at bedtime. Active melatonin 3 MG tablet Take 3 mg by mouth daily. Active budesonide-formo terol (SYMBICORT) 160-4.5 MCG/ACT inhalerIndicatio ns:Moderate COPD (chronic obstructive pulmonary disease) (CMS/HCC HHS/HCC) Inhale 2 puffs into the lungs 2 (two) times daily. 3 Inhaler 3 9 Active tiotropium (SPIRIVA RESPIMAT) 2.5 MCG/ACT inhaler (SPIRIVA RESPIMAT)Indicat ions:Moderate COPD (chronic obstructive pulmonary disease) ([facility]) Inhale 2 puffs into the lungs daily. Please provide assembled. 3 Inhaler 3 9 Active Active Problems Problem Noted Date Diagnosed Date Moderate COPD (chronic obstr uctive pulmonary disease) ([facility]) 01/12/2019 Immunizations Name Administration Dates Next Due Influenza Adult (Generic) 07/18/2018 Pneumococcal (Pneumovax 23) 06/12/2015 Zoster (Zostavax) 29412 Unt/0.65Ml 09/12/2011 Family History Medical History Relation Comments Emphysema Father Diabetes Mother Relation Status Comments Father Mother Social History Tobacco Use Types Packs/Day Years Used Date Smoking Tobacco: Former Cigarettes 1 15 1 965 - 1979 Smokeless Tobacco: Never Alcohol Use Standard Drinks/Week Comments Yes 1.7 (1 standard drink = 0.6 oz p ure alcohol) 1 drink/day Sex and Gender Information Value Date Recorded Sex Assigned at Not on file 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 Gender Identity Not on file Sexual Orientation Not on file 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 Industry 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 Not on file Not on file No t on file Last Filed Vital Signs Vital Sign Reading Time Taken Comments Blood Pressure 118/68 01/12/2019 11:55 AM CDT Pulse 76 01/12/2019 11:55 AM CDT Temperature - - Respiratory Rate - - Oxygen Saturation 95% 01/12/2019 11:55 AM CDT room air Inhaled Oxygen Concentration - - Weight 72.6 kg (160 lb) 01/12/2019 11:55 AM CDT Height 167.6 cm (5' 6 ) 01/12/2019 11:55 AM CDT Body Mass Index 25.82 01/12/2019 11:55 AM CDT Plan of Treatment Health Maintenance Due Date Last Done Comments Hepatitis C 1968 DTaP, Tdap and Td Vaccines ( 1 - Tdap) 1969 Zoster Vaccines (2 of 3) 11/07/2011 09/12/2011 Annual Medicare Wellness Visit 2013 Pneumococcal Vaccine: 65+ Years (2 of 2 - PCV) 06/12/2016 06/12/2015 RSV Immunization or 60+ Years (1 - 1-dose 75+ series) 2023 COVID-19 Vaccine ( - 2023-2 5 season) 2024 Influenza Adult (#1) 2024 07/18/2018, 06/21/2017 Meningococcal B Vaccine Aged Out No l onger eligible based on patient's age to complete this topic Meningococcal Vaccine Aged Out No adrienne patti eligible based on patient's age to complete this topic RSV Immunizations Under 20 Months Aged Out No longer eligible b ased on patient's age to complete this topic Insurance MEDICARE [facility] Care Teams Forestry Technician Relationship Specialty Start Date End Date Sylvain Hernandez MD [address] [place], [place] [address] [address] PCP - General FAMILY PRACTICE 10/31/18
== END 2024-10-11 09:16 | disposition home or self-care (01) ==
LOC: CHSIMG 09:20
PROVIDERS: PCP Family Medicine; Visit Provider Internal Medicine Pulmonary Disease
DX: R91.8 Other nonspecific abnormal finding of lung field (principal)
CPT/HCPCS: 71250

== ENCOUNTER 2024-12-14 09:44 | Outpatient (CLI) | payer MEDICARE, SELFPAY ==
--- OUTSIDE RECORDS SUMMARY | 2024-12-14 10:00 | XMS_ITS | Clinical Summary ---
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 ANESTHESIA: Versed 5 mg and fentanyl 100 mcg OPERATIVE FINDINGS: Nonspecific inflammation of the sigmoid colon INDICATION FOR PROCEDURE: Deniz is a 63-year-old white male who presents [...] in the sigmoid colon region RECOMMENDATIONS 1. Follow up with primary care physician, Dr. Justin Lanza. 2. Repeat colonoscopy in five (5) years. Procedure Note [...] five (5) years. us Gene Salinas MD [place] - DIGESTIVE SYSTEM SE RVICES Final Result from Last 3 Months or Most Recently Relevant to Health Maintenance Insurance MEDICARE
--- OUTSIDE RECORDS SUMMARY | 2024-12-14 10:00 | XMS_ITS | Clinical Summary ---
Author Organization [facility] Address [address] [place] [address] Care Team Providers Care Iridologist Name Role Phone Sylvain Hernandez MD Primary Care Provider [phone] Allergies No known active allergies Medications amlodipine [...] RESPIMAT)Indicat ions:Moderate COPD (chronic obstructive pulmonary disease) ([facility]) Inhale 2 puffs into the lungs daily. Please provide assembled. 3 Inhaler 3 9 Active Active Problems Problem Noted Date Diagnosed Date Moderate COPD (chronic obstr uctive pulmonary disease) (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 Not on file Not on file No [...] Medicare Wellness Visit 2013 Pneumococcal Vaccine: 65+ Ye ars (2 of 2 - PCV) 06/12/2016 06/12/2015 RSV Immunization or 60+ Years (1 - 1-dose 75+ series) 2023 COVID-19 Vaccine ( - 2023-2 5 season) 2024 Meningococcal B Vaccine Aged Out No l onger eligible based on patient's age to complete this topic Meningococcal Vaccine Aged Out No adrienne patti eligible based on patient's age to complete this topic RSV Immunizations Under 20 Months Aged Out No longer eligible based on patient's age to complete this topic Insurance MEDICARE [facility] Care Teams Iridologist Relationship Specialty Start Date End Date Sylvain Hernandez MD [address] [place] [address] PCP - General FAMILY PRACTICE 10/31/18
--- OUTSIDE RECORDS SUMMARY | 2024-12-14 10:00 | XMS_ITS | Encounter Summary ---
Author Organization [facility] Address [facility]ly [facility] [place] [address] Care Team Providers Care Production Control Supervisor Name Role Phone Sylvain Hernandez MD Primary Care Provider [phone] Encounter Details Date Type Department Care Team (Late st Contact Info) Description 02/17/2019 Abstract SFL CONVERSION [address] [place] [address] , Generic ConversionMD Social History Tobacco Use Types Packs/Day Years Used Date Smoking Tobacco: Former Cigarettes 1 15 1 965 - 1980 Smokeless Tobacco: Never Alcohol Use Standard Drinks/Week Comments Yes 1.7 (1 standard drink = 0.6 oz p ure alcohol) 1 drink/day Sex and Gender Information Value Date Recorded Sex Assigned at Not on file 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
--- NOTE | 2024-12-14 17:22 | WPDPFTINT ---
PFT Procedure Performed PFT Procedure Performed Spirometry with Pre/Post Bronchodilator Plethysmography (Lung Vol) Diffusing Cap (DLCO) Flow Vol Loop PFT Interpretation This is a pulmonary function test with pre and post-bronchodilator spirometry, plethysmography and diffusing capacity. The test was performed and results interpreted in accordance with the 2019 and 2005 ATS/ERS Task Force guidelines respectively using the Global Lung Function Initiative-2012 reference equations. Patient demonstrated good effort and cooperation. Reproducibility criteria were met. The quality of the pre bronchodilator spirometry maneuver was Grade A and post bronchodilator spirometry maneuver was Grade A. Findings: Spirometry: There is decreased maximal expiratory airflow at all lung volumes with concave expiratory flow tracing. The contour the inspiratory flow tracing is normal. The pre bronchodilator FVC is 3.06 L, 87% predicted. The pre bronchodilator FEV1 is 1.00 L, 38% predicted. The pre bronchodilator FEV1: FVC ratio is 33%. The post bronchodilator FVC is 2.92 L, representing a 5% decrease. The post bronchodilator FEV1 is 1.05 L, representing a 6% increase. The post bronchodilator FEV1: FVC ratio is 36%. Plethysmography: The total lung capacity is 7.94 L, 127% predicted. The functional residual capacity is 5.90 L, 178% predicted. The residual volume is 4.88 L, 207% predicted. The residual volume: Total lung capacity ratio 61%. Diffusing capacity: The diffusing capacity unadjusted for hemoglobin and carboxyhemoglobin is 11.8, 51% predicted. Diffusing capacity adjusted for alveolar volume is 3.29, 83% predicted. In comparison to previous pulmonary function testing on 08/15/2023 the post bronchodilator FVC is unchanged from 2.96 L to 2.92 L. The post bronchodilator FEV1 is unchanged from 1.04 L to 1.05 L. The total lung capacity is unchanged from 8.41 L to 7.94 L. The functional residual capacity is unchanged from 6.56 L to 5.90 L. The residual volume is unchanged from 5.62 L to 4.88 L. The diffusing capacity unadjusted for hemoglobin and carboxyhemoglobin is decreased from 13.3 to 11.8. The diffusing capacity adjusted for alveolar volume is unchanged from 3.56 to 3.29. Impression: There is a severe obstructive abnormality. There is no significant improvement after inhaling a single dose of albuterol. The increase in residual volume to total lung volume ratio is consistent with hyperinflation from an obstructive abnormality. The diffusing capacity unadjusted for hemoglobin and carboxyhemoglobin is moderately decreased and normalizes when adjusted for alveolar volume. In comparison to previous pulmonary function testing on 08/15/2023 there has been a greater than anticipated time dependent decrease in the diffusing capacity unadjusted for hemoglobin and carboxyhemoglobin with no significant change in the FVC, FEV1, total lung capacity, functional residual capacity, residual volume or diffusing capacity adjusted for alveolar volume. Clinical correlation is recommended.
== END 2024-12-14 09:45 | disposition home or self-care (01) ==
PROVIDERS: PCP Family Medicine; Visit Provider Internal Medicine Pulmonary Disease
DX: R06.09 Other forms of dyspnea (principal); R94.2 Abnormal results of pulmonary function studies
CPT/HCPCS: 94060; 94726; 94729

== ENCOUNTER 2025-04-09 12:58 | Outpatient (CLI) | payer MEDICARE, SELFPAY ==
--- NOTE | ~2025-04-09 | CT_ITS ---
CT Scan of the Chest without Contrast: Clinical Indication: Six-month follow-up exam of prior abnormal chest CT Technique: Contiguous sections were acquired throughout the chest without intravenous contrast. Dose reduction technique was used on this scan by utilizing automated exposure control and iterative recon struction technique. The dose-length product (DLP) was 224.77 mGy-cm. COMPARISON: 10/11/2024 Findings: There is no evidence of any significant mediastinal, hilar or axillary lymphadenopathy. There are ath erosclerotic calcifications of the aorta and coronary arteries. There is no evidence of pleural or pericardial effusion. Scattered subcentimeter pulmonary nodules seen on prior exam are largely resolved. There is however a new 6 mm nodule in the superior segment right lower lobe. Images through the upper abdomen reveal no abnormalities. Diffuse lungs and esophagus in the spine ar e compatible with ankylosing spondylitis. Impression: New 6 mm nodule in the superior segment right lower lobe, most likely infectious/inflammatory. Other previously noted pulmonary nodules are largely resolved. Reviewed, dictated and finalized at [facility]. Impression: New 6 mm nodule in the superior segment right lower lobe, most likely infectiou s/inflammatory. Other previously noted pulmonary nodules are largely resolved.
--- OUTSIDE RECORDS SUMMARY | 2025-04-09 13:11 | XMS_ITS | Clinical Summary ---
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 Gender Identity Not on file Sexual Orientation [...] 9:00 AM CDT Height 172.7 cm (5' 8) 01/10/2014 9:00 AM CDT Body Mass Index 26 01/10/2014 9:00 AM CDT Plan of Treatment Health Maintenance Due Date Last Done Comments Hepatitis C Virus (HCV) Screening 1950 Zoster Immunization (1 of 2) 09/24/2009 Pneumococcal Immunization (50+ years) (2 of 2 - PCV) 06/06/2013 06/06/2012, 08/09/2007 Respiratory Syncytial Virus (RSV) Immunization (Adult) (1 - 1-dose 75+ series) 2023 SARS-COV-2 Immunization ( - 2023- season) 2024 Influenza Immunization (#1) 05/13/202506/14, 06/06/2012, 06/17/2009, Additional history exists Pneumococcal Immunization Combined Discontinued 06/06/2012, 08/09/2007 Colonoscopy Discontinued 07/03/2013, 06/28/2008 Colorectal Cancer Screening Discontinued DTaP/Tdap/Td Immunization Discontinued 07/12/2013 Cologuard Discontinued Hepatitis B Immunization Aged Out No longer eligible based on patient's age to complete this topic Human Papillomavirus (HPV) Immunization Aged Out No longer eligible based [...] five (5) years. us Gene Salinas MD [place] - DIGESTIVE SYSTEM SE RVICES Final Result from Last 3 Months or Most Recently Relevant to Health Maintenance Insurance MEDICARE
== END 2025-04-09 12:59 | disposition home or self-care (01) ==
LOC: CHSIMG 12:59
PROVIDERS: PCP Family Medicine; Visit Provider Internal Medicine Pulmonary Disease
DX: R91.8 Other nonspecific abnormal finding of lung field (principal); R91.1 Solitary pulmonary nodule
CPT/HCPCS: 71250

== ENCOUNTER 2025-08-27 11:58 | Outpatient (CLI) | payer MEDICARE, SELFPAY ==
--- NOTE | ~2025-08-27 | XR_ITS ---
EXAMINATION: XR chest 2V, 08/27/2025 12:05 WATER RIGHTS SPECIALIST HISTORY: J44.9 - Chronic obstructive pulmonary disease, unspecified COMPARISON: No comparisons available. Technique: 2 views obtained. Findings: The lungs are clear, no effusion. No pneumothorax. Heart is normal size. Mediastinal and hilar contours are within normal limits. Bony thorax no acute abnormality. Impression: No acute cardiopulmonary abnormality. Reviewed, dictated and finalized at location P. R RIGHTS SPECIALIST Impression: No acute cardiopulmonary abnormality.
--- OUTSIDE RECORDS SUMMARY | 2025-08-27 14:12 | XMS_ITS | Clinical Summary ---
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 Repeat colonoscopy in five (5) years. Gene Salinas MD [place] - DIGESTIVE SYSTEM SE RVICES Final Result from Last 3 Months or Most Recently Relevant to Health Maintenance Insurance MEDICARE
--- OUTSIDE RECORDS SUMMARY | 2025-08-27 14:12 | XMS_ITS | Encounter Summary ---
Author Organization [facility] Address [facility] [place] [address] Care Team Providers Care Payroll Analyst Name Role Phone ySlvain Hernandez MD Primary Care Provider [phone] Encounter Details Date Type Department Care Team (Late st Contact Info) Description 02/17/2019 Abstract SFL CONVERSION [address] [place] [address] , Generic ConversionMD Social History Tobacco Use Types Packs/Day Years Used Date Smoking Tobacco: Former Cigarettes 1 15 1 965 - 1980 Smokeless Tobacco: Never Alcohol Use Standard Drinks/Week Comments Yes 1.7 (1 standard drink = 0.6 oz p ure alcohol) 1 drink/day Sex and Gender Information Value Date Recorded Sex Assigned at Not on file 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
--- OUTSIDE RECORDS SUMMARY | 2025-08-27 14:12 | XMS_ITS | Clinical Summary ---
Author Organization [facility] Address [address] [place] [address] Care Team Providers Care Manager Of Learning Name Role Phone Sylvain Hernandez MD Primary Care Provider [phone] Allergies No known active allergies Medications amlodipine [...] RESPIMAT)Indicat ions:Moderate COPD (chronic obstructive pulmonary disease) ([facility]) Inhale 2 puffs into the lungs daily. Please provide assembled. 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 Not on file No [...] 11:55 AM CDT Height 167.6 cm (5' 6) 01/12/2019 11:55 AM CDT Body Mass Index 25.82 01/12/2019 11:55 AM CDT Plan of Treatment Health Maintenance Due Date Last Done Comments Hepatitis C 1968 DTaP, Tdap and Td Vaccines ( 1 - Tdap) 1969 Zoster Vaccines (2 of 3) 11/07/2011 09/12/2011 Annual Medicare Wellness Visit 2013 Pneumococcal Vaccine: 50+ Years (2 of 2 - PCV) 06/12/2016 06/12/2015 RSV Immunization or 60+ Years (1 - 1-dose 75+ series) 2023 COVID-19 Vaccine (2024-2 6 season) 2025 Influenza Adult (#1) 2025 07/18/2018, 06/21/2017 Hepatitis A Vaccines Aged Out No long er eligible based on patient's age to complete this topic Meningococcal B Vaccine Aged Out No l onger eligible based on patient's age to complete this topic Meningococcal Vaccine Aged Out No adrienne patti eligible based on patient's age to complete this topic RSV Immunizations Under 20 Months Aged Out No longer eligible b ased on patient's age to complete this topic Insurance MEDICARE [facility] Care Teams Manager Of Learning Relationship Specialty Start Date End Date Sylvain Hernandez MD [facility] [place] [address] PCP - General FAMILY PRACTICE 10/31/18
== END 2025-08-27 11:59 | disposition home or self-care (01) ==
LOC: CHSIMG 12:00
PROVIDERS: PCP Family Medicine; Visit Provider Family Medicine
DX: J44.9 Chronic obstructive pulmonary disease, unspecified (principal)
CPT/HCPCS: 71046